=== PATIENT | male | born 1995 | race Caucasian/White ===

== ENCOUNTER 2018-03-06 13:39 | Inpatient (IN) | payer OTHER ==
[2018-03-06 14:56] LABS: HEMATOCRIT 43.3 % (42.0-52.0); HEMOGLOBIN 15.5 g/dl (13.5-17.5); MEAN CORPUSCULAR HEMOGLOBIN 30.3 pg (27.0-33.0); MEAN CORPUSCULAR HGB CONC 35.8 g/dl (32.0-36.5); MEAN CORPUSCULAR VOLUME 84.6 fl (80.0-96.0); PLATELET COUNT, AUTOMATED 280 10^3/uL (150-450); RED BLOOD COUNT 5.12 10^6/uL (4.30-6.10); RED CELL DISTRIBUTION WIDTH 11.9 % (11.5-14.5); WHITE BLOOD COUNT 6.5 10^3/uL (4.0-10.0)
[2018-03-06 15:28] LABS: ACETAMINOPHEN LEVEL < 2.0 UG/ML (10.0-30.0); ALBUMIN 4.5 GM/DL (3.2-5.2); ALBUMIN/GLOBULIN RATIO 1.36 (1.00-1.93); ALKALINE PHOSPHATASE 131 U/L (45-117); ALT/SGPT 41 U/L (12-78); ANION GAP 9 MEQ/L (8-16); AST/SGOT 29 U/L (7-37); BILIRUBIN,DIRECT 0.2 MG/DL (0.0-0.2); BILIRUBIN,TOTAL 1.1 MG/DL (0.2-1.0); BLOOD UREA NITROGEN 16 MG/DL (7-18); CALCIUM LEVEL 8.7 MG/DL (8.5-10.1); CARBON DIOXIDE LEVEL 27 MEQ/L (21-32); CHLORIDE LEVEL 105 MEQ/L (98-107); CREATININE FOR GFR 0.99 MG/DL (0.70-1.30); ETHYL ALCOHOL (ETHANOL) < 0.003 % (0.000-0.010); GLOMERULAR FILTRATION RATE > 60.0 (>60); GLUCOSE, FASTING 81 MG/DL (70-100); POTASSIUM SERUM 3.9 MEQ/L (3.5-5.1); SALICYLATE LEVEL < 1.7 MG/DL (5.0-30.0); SODIUM LEVEL 141 MEQ/L (136-145); TOTAL PROTEIN 7.8 GM/DL (6.4-8.2)
[2018-03-06 17:08] LABS: AMPHETAMINES LEVEL URINE NEGATIVE (NEGATIVE); BARBITURATES URINE NEGATIVE (NEGATIVE); BENZODIAZEPINES URINE NEGATIVE (NEGATIVE); CANNABINOIDS URINE NEGATIVE (NEGATIVE); COCAINE METABOLITE URINE NEGATIVE (NEGATIVE); METHADONE URINE NEGATIVE (NEGATIVE); OPIATES URINE NEGATIVE (NEGATIVE); PHENCYCLIDINE URINE NEGATIVE (NEGATIVE)
[2018-03-06] MEDS ORDERED: MOM 30ML SUSPENSION UDC PO (19:30)
[2018-03-06] MEDS ORDERED: MAALOX 30 ML SUSP *UDC PO (19:30)
[2018-03-06] MEDS ORDERED: ACETAMINOPHEN TAB 650MG DOSE (2X325MG) PO (19:30)
[2018-03-07] MEDS: SERTRALINE HCL 50 MG TAB PO (18:21)
[2018-03-07] MEDS: hydrOXYzine 50 MG TAB PO (22:27)
[2018-03-08] MEDS: SERTRALINE HCL 50 MG TAB PO (08:57)
[2018-03-08] MEDS: hydrOXYzine 50 MG TAB PO (08:58)
[2018-03-09] MEDS: traZODone 50 MG TAB PO ×2 (00:22→22:08)
[2018-03-09] MEDS: SERTRALINE HCL 50 MG TAB PO (08:02)
[2018-03-10] MEDS: SERTRALINE HCL 25 MG TABLET PO (08:36)
[2018-03-10] MEDS: CitaloPRAM (CeleXA) 10 MG TABLET PO (08:37)
[2018-03-10] MEDS: hydrOXYzine 50 MG TAB PO (14:51)
[2018-03-11] MEDS: CitaloPRAM (CeleXA) 10 MG TABLET PO (08:50)
[2018-03-11] MEDS: hydrOXYzine 50 MG TAB PO (17:25)
[2018-03-12] MEDS: CitaloPRAM (CeleXA) 10 MG TABLET PO ×2 (08:01→15:40)
[2018-03-12] MEDS: hydrOXYzine 25 MG TAB PO (15:40)
[2018-03-13] MEDS: CitaloPRAM (CeleXA) 20 MG TAB PO (08:50)
[2018-03-13] MEDS: hydrOXYzine 25 MG TAB PO (08:50)
== END 2018-03-13 14:20 | disposition home or self-care (01) | DRG 881 ==
LOC: M ED 13:39 → M ED INP 19:30 → M PSY 20:07
DX: F43.21 Adjustment disorder with depressed mood (principal); R45.851 Suicidal ideations

== ENCOUNTER 2018-04-04 07:12 | Inpatient (IN) | payer OTHER ==
[2018-04-04 07:42] LABS: HEMATOCRIT 44.9 % (42.0-52.0); HEMOGLOBIN 15.8 g/dl (13.5-17.5); MEAN CORPUSCULAR HGB CONC 35.2 g/dl (32.0-36.5); MEAN CORPUSCULAR VOLUME 85.4 fl (80.0-96.0); PLATELET COUNT, AUTOMATED 283 10^3/uL (150-450); RED BLOOD COUNT 5.26 10^6/uL (4.30-6.10); RED CELL DISTRIBUTION WIDTH 11.9 % (11.5-14.5); WHITE BLOOD COUNT 5.6 10^3/uL (4.0-10.0)
[2018-04-04 08:08] LABS: ACETAMINOPHEN LEVEL < 2.0 UG/ML (10.0-30.0); ALBUMIN 4.4 GM/DL (3.2-5.2); ALBUMIN/GLOBULIN RATIO 1.42 (1.00-1.93); ALKALINE PHOSPHATASE 118 U/L (45-117); ALT/SGPT 38 U/L (12-78); ANION GAP 8 MEQ/L (8-16); AST/SGOT 19 U/L (7-37); BILIRUBIN,DIRECT < 0.1 MG/DL (0.0-0.2); BILIRUBIN,TOTAL 0.4 MG/DL (0.2-1.0); BLOOD UREA NITROGEN 19 MG/DL (7-18); CALCIUM LEVEL 9.2 MG/DL (8.5-10.1); CARBON DIOXIDE LEVEL 25 MEQ/L (21-32); CHLORIDE LEVEL 106 MEQ/L (98-107); CREATININE FOR GFR 0.92 MG/DL (0.70-1.30); ETHYL ALCOHOL (ETHANOL) < 0.003 % (0.000-0.010); GLOMERULAR FILTRATION RATE > 60.0 (>60); GLUCOSE, FASTING 95 MG/DL (70-100); POTASSIUM SERUM 4.2 MEQ/L (3.5-5.1); SALICYLATE LEVEL < 1.7 MG/DL (5.0-30.0); SODIUM LEVEL 139 MEQ/L (136-145); TOTAL PROTEIN 7.5 GM/DL (6.4-8.2)
[2018-04-04 08:41] LABS: AMPHETAMINES LEVEL URINE NEGATIVE (NEGATIVE); BARBITURATES URINE NEGATIVE (NEGATIVE); BENZODIAZEPINES URINE NEGATIVE (NEGATIVE); CANNABINOIDS URINE NEGATIVE (NEGATIVE); COCAINE METABOLITE URINE NEGATIVE (NEGATIVE); METHADONE URINE NEGATIVE (NEGATIVE); OPIATES URINE NEGATIVE (NEGATIVE); PHENCYCLIDINE URINE NEGATIVE (NEGATIVE)
[2018-04-04] MEDS ORDERED: MOM 30ML SUSPENSION UDC PO (11:45)
[2018-04-04] MEDS ORDERED: MAALOX 30 ML SUSP *UDC PO (11:45)
[2018-04-04] MEDS ORDERED: ACETAMINOPHEN TAB 650MG DOSE (2X325MG) PO (11:45)
[2018-04-04] MEDS: VENLAFAXINE **XR** 75MG CAPSULE PO (13:51)
[2018-04-04] MEDS: hydrOXYzine 25 MG TAB PO ×2 (13:51→21:34)
[2018-04-04] MEDS: DOXEPIN 10 MG CAP PO (21:33)
[2018-04-04] MEDS: traZODone 50 MG TAB PO (21:34)
[2018-04-04] MEDS: PRAZOSIN 1 MG CAP PO (21:34)
[2018-04-05] MEDS: VENLAFAXINE **XR** 75MG CAPSULE PO (08:51)
[2018-04-05] MEDS: DOXEPIN 10 MG CAP PO (20:26)
[2018-04-05] MEDS: PRAZOSIN 1 MG CAP PO (20:27)
[2018-04-06] MEDS: VENLAFAXINE **XR** 75MG CAPSULE PO (10:01)
[2018-04-06] MEDS: CEPACOL LOZENGE PO (10:01)
[2018-04-06] MEDS: DOXEPIN 10 MG CAP PO (21:44)
[2018-04-06] MEDS: PRAZOSIN 1 MG CAP PO (21:44)
[2018-04-07] MEDS: VENLAFAXINE **XR** 75MG CAPSULE PO (08:21)
[2018-04-07] MEDS: CEPACOL LOZENGE PO (12:25)
[2018-04-07] MEDS: PRAZOSIN 1 MG CAP PO (21:00)
[2018-04-07] MEDS: DOXEPIN 10 MG CAP PO (21:00)
[2018-04-08] MEDS: VENLAFAXINE **XR** 75MG CAPSULE PO (09:27)
[2018-04-08] MEDS ORDERED: SODIUM CHLORIDE NASAL 0.65% SPRAY BTL (OCEAN) (11:15)
[2018-04-08] MEDS: DOXEPIN 10 MG CAP PO (20:38)
[2018-04-08] MEDS: PRAZOSIN 1 MG CAP PO (20:38)
[2018-04-09] MEDS: VENLAFAXINE **XR** 75MG CAPSULE PO (08:42)
[2018-04-09] MEDS: PRAZOSIN 1 MG CAP PO (20:52)
[2018-04-09] MEDS: DOXEPIN 10 MG CAP PO (20:53)
[2018-04-10] MEDS: VENLAFAXINE **XR** 75MG CAPSULE PO (08:04)
[2018-04-10] MEDS: hydrOXYzine 25 MG TAB PO (17:49)
[2018-04-10] MEDS: DOXEPIN 10 MG CAP PO (20:08)
[2018-04-10] MEDS: PRAZOSIN 1 MG CAP PO (20:08)
[2018-04-11] MEDS: VENLAFAXINE **XR** 75MG CAPSULE PO (08:04)
[2018-04-11] MEDS: hydrOXYzine 25 MG TAB PO (09:37)
== END 2018-04-11 13:45 | disposition home or self-care (01) | DRG 885 ==
LOC: M ED 07:12 → M ED INP 11:31 → M PSY 12:08
DX: F33.2 Major depressive disorder, recurrent severe without psychotic features (principal); F43.10 Post-traumatic stress disorder, unspecified; M25.561 Pain in right knee; Z62.811 Personal history of psychological abuse in childhood; Z62.810 Personal history of physical and sexual abuse in childhood; Z79.899 Other long term (current) drug therapy

== ENCOUNTER 2018-06-19 15:06 | Inpatient (IN) | payer OTHER ==
[~2018-06-19] VITALS: Ht 185.4 cm; Wt 96.3 kg
[~2018-06-19 15:06] MED LIST: ARIP5TA PO; CELE20TA PO; DOXE10CA PO; EFFE75CA2 PO; HYDR-3363 PO; MINI1CAP PO; TRAZO50TA PO; VENL75CA47 PO
[2018-06-19] MEDS ORDERED: HYDR-3363 PO (15:23)
[2018-06-19 16:02] LABS: MEAN CORPUSCULAR HEMOGLOBIN 30.1 pg (27.0-33.0); MEAN CORPUSCULAR HGB CONC 35.7 g/dl (32.0-36.5); MEAN CORPUSCULAR VOLUME 84.2 fl (80.0-96.0); PLATELET COUNT, AUTOMATED 281 10^3/uL (150-450); RED BLOOD COUNT 4.99 10^6/uL (4.30-6.10); WHITE BLOOD COUNT 7.3 10^3/uL (4.0-10.0)
[2018-06-19 16:26] LABS: AMPHETAMINES LEVEL URINE NEGATIVE (NEGATIVE); BARBITURATES URINE NEGATIVE (NEGATIVE); BENZODIAZEPINES URINE NEGATIVE (NEGATIVE); CANNABINOIDS URINE NEGATIVE (NEGATIVE); COCAINE METABOLITE URINE NEGATIVE (NEGATIVE); METHADONE URINE NEGATIVE (NEGATIVE); OPIATES URINE NEGATIVE (NEGATIVE); PHENCYCLIDINE URINE NEGATIVE (NEGATIVE)
[2018-06-19 16:36] LABS: ACETAMINOPHEN LEVEL < 2.0 UG/ML (10.0-30.0); ALBUMIN 4.3 GM/DL (3.2-5.2); ALT/SGPT 59 U/L (12-78); BILIRUBIN,DIRECT < 0.1 MG/DL (0.0-0.2); BILIRUBIN,TOTAL 0.4 MG/DL (0.2-1.0); BLOOD UREA NITROGEN 21 MG/DL (7-18); CALCIUM LEVEL 8.7 MG/DL (8.5-10.1); CARBON DIOXIDE LEVEL 25 MEQ/L (21-32); CHLORIDE LEVEL 105 MEQ/L (98-107); CREATININE FOR GFR 1.01 MG/DL (0.70-1.30); ETHYL ALCOHOL (ETHANOL) < 0.003 % (0.000-0.010); GLOMERULAR FILTRATION RATE > 60.0 (>60); GLUCOSE, FASTING 107 MG/DL (70-100); POTASSIUM SERUM 3.9 MEQ/L (3.5-5.1); SALICYLATE LEVEL < 1.7 MG/DL (5.0-30.0); SODIUM LEVEL 139 MEQ/L (136-145); THYROID STIMULATING HORMONE 0.819 uIU/ML (0.358-3.740); TOTAL PROTEIN 7.5 GM/DL (6.4-8.2)
[2018-06-19] MEDS ORDERED: MOM 30ML SUSPENSION UDC PO PRN (17:45)
[2018-06-19] MEDS ORDERED: MAALOX 30 ML SUSP *UDC PO PRN (17:45)
[2018-06-19] MEDS ORDERED: ACETAMINOPHEN TAB 650MG DOSE (2X325MG) PO PRN (17:45)
[2018-06-19] MEDS ORDERED: traZODone 50 MG TAB PO PRN (17:45)
[2018-06-19 18:35] VITALS: BP 148/92
[2018-06-19] MEDS: hydrOXYzine 25 MG TAB PO SCH (20:54)
[2018-06-20 06:41] VITALS: BP 140/61
[2018-06-20] MEDS: hydrOXYzine 25 MG TAB PO SCH ×2 (08:36→20:24)
[2018-06-20] MEDS ORDERED: VENLAFAXINE **XR** 75MG CAPSULE PO SCH (09:00)
--- NOTE | 2018-06-20 09:17 | HPEPDOC ---
[facility] Medical History & Physical Date of Admission Jun 19, 2018 History and Physical PCP: [facility] ATTENDING: Dr. Jama Osborn HPI: 23 yo M admitted to [facility] for unspecified depressive disorder, being medically examined today. No acute medical complaints today. Denies any fevers, chills, weakness, fatigue, MUIR, CP, SOB, cough, palpitations, abdominal pain, N/V/D or changes in bowel or bladder habits. PMHx: Chronic right knee pain, controlled Anxiety Depression H/O SI PSHX: Denies SOCHX: Resides in: [facility], from [place] Marital Status: Kids: None Employment: Active duty Tobacco use: Denies ETOH: One drink per year Illicit Drugs: Denies IV Drug Use: Denies Tattoos done unprofessionally: Denies FAMHX: Mother: Alive, well Father: , [place] Siblings: One brother, one sister Alive, well Children: None Unexpected deaths due to medical reasons: None. ROS: As noted in HPI, otherwise 11pt ROS of systems reviewed and unremarkable. PE: GEN: 23 yo M, appears stated age. Well-nourished, well developed. No acute distress. Alert and oriented x 3. Pleasant, interactive. HEENT: Normocephalic, atraumatic. Pupils are equal, round, and reactive to light. Extraocular movements are intact. No nystagmus appreciated. Sclera are nonicteric. Conjunctiva without injection. Nose midline. Nasal turbinates without bogginess. EACs both patent BL. TMs both visualized and bourgeois with good cone of light, no bulging or erythema. No facial asymmetry. Moist mucous membranes. Dentition fair. Pharynx pink and moist, no cobblestoning. Neck supple, trachea midline. No lymphadenopathy or thyromegaly appreciated. CHEST: Regular rate and rhythm, +S1, +S2 LUNGS: Clear to auscultation bilaterally. No wheezes, rales, or rhonchi. Breathing appears symmetric and easy. Patient is speaking in full sentences. No accessory muscle use. ABD: Round, soft, non-tender, non-distended. +Bowel sounds throughout. No rebou nd or guarding. No costovertebral angle tenderness. EXT: Pulses 2+ bilaterally dorsalis pedis and radial. No lower extremity edema appreciated. SKIN: [place], dry, warm. Capillary refill <2sec. No rashes. NEURO: Alert and oriented x 3. Cranial nerves III-XII are intact. No focal deficits appreciated. EKG: Normal sinus rhythm Incomplete right bundle-branch block Otherwise normal EKG Comparison tracing not on file Electronically Signed On 03-07-2018 17:24:30 EDT by Bang Clay: 23 yo M admitted to [facility] for unspecified depressive disorder 1. Psych. Plan per Psychiatry. EKG on file. 2. Chronic right knee pain. Controlled. Continue Tylenol 650 mg every 6 hours as needed. 3. Follow up with PCP on discharge. 4. Staff member Willis present throughout exam. Vital Signs Vital Signs Date Time Temp Pulse Resp B/P (MAP) Pulse Ox O2 Delivery O2 Flow Rate FiO2 06/20/18 09:06 Room Air 06/20/18 06:41 97.1 78 18 140/61 (87) 06/19/18 18:18 97 Laboratory Data Labs 24H Laboratory Tests 2 06/19/18 15:50: Nucleated Red Blood Cells % (auto) 0.0, Anion Gap 9, Glomerular Filtration Rate > 60.0, Calcium Level 8.7, Aspartate Amino Transf (AST/SGOT) 32, Alanine Aminotransferase (ALT/SGPT) 59, Alkaline Phosphatase 113, Total Bilirubin 0.4, Direct Bilirubin < 0.1, Total Protein 7.5, Albumin 4.3, Albumin/Globulin Ratio 1.34, Thyroid Stimulating Hormone (TSH) 0.819, Salicylates Level < 1.7L, Acetaminophen Level < 2.0L, Ethyl Alcohol Level < 0.003 06/19/18 15:52: Urine Amphetamines Screen NEGATIVE, Urine Benzodiazepines Screen NEGATIVE, Urine Opiates Screen NEGATIVE, Urine Methadone Screen NEGATIVE, Urine Barbiturates Screen NEGATIVE, Urine Phencyclidine Screen NEGATIVE, Urine Cocaine Metabolite Screen NEGATIVE, Urine Cannabinoids Screen NEGATIVE CBC/BMP Laboratory Tests 06/19/18 15:50 Red Blood Count 4.99, Mean Corpuscular Volume 84.2, Mean Corpuscular Hemoglobin 30.1, Mean Corpuscular Hemoglobin Concent 35.7, Red Cell Distribution Width 12.1 Home Medications Scheduled Hydroxyzine HCl (Hydroxyzine HCl) 25 Mg Tab, 1 TAB PO BID for anxiety Venlafaxine HCl (Venlafaxine HCl ER) 75 Mg Capcr, 150 MG PO DAILY for mood Allergies Coded Allergies: No Known Allergies (Unverified , 03/06/18) Ayanna Robles Jun 20, 2018 09:17
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
[2018-06-20 18:00] VITALS: BP 149/70
[2018-06-21 06:31] VITALS: BP 119/66
[2018-06-21] MEDS ORDERED: PARoxetine 20 MG TAB PO SCH (09:00)
[2018-06-21] MEDS: hydrOXYzine 25 MG TAB PO SCH (09:52)
[2018-06-21] MEDS ORDERED: PARO20TA3 PO (10:35)
[2018-06-21] MEDS ORDERED: TRAZO50TA PO (10:35)
[2018-06-21] MEDS ORDERED: MINI1CAP PO (10:37)
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
[2018-06-21] MEDS ORDERED: PRAZOSIN 1 MG CAP PO SCH (21:00)
[2018-06-23] MEDS ORDERED: PARO20TA3 PO (12:57)
[2018-06-23] MEDS ORDERED: PRAZ1CAP PO ×2 (12:59→13:02)
[2018-06-23] MEDS ORDERED: TRAZ-160 PO (13:04)
== END 2018-06-21 12:15 | disposition home or self-care (01) | DRG 885 ==
LOC: M ED 15:06 → M ED INP 17:37 → M PSY 18:32
PROVIDERS: ADMIT Psychiatry & Neurology Psychiatry; ATTEND Psychiatry & Neurology Psychiatry
DX: F33.9 Major depressive disorder, recurrent, unspecified (principal); F43.10 Post-traumatic stress disorder, unspecified; Z62.810 Personal history of physical and sexual abuse in childhood; Z62.811 Personal history of psychological abuse in childhood; Z81.8 Family history of other mental and behavioral disorders; Z79.899 Other long term (current) drug therapy; Z56.6 Other physical and mental strain related to work